=== PATIENT | female | born 1985 | race Caucasian/White ===

== ENCOUNTER 2021-12-24 12:32 | Observation (INO) ==
[2021-12-24] MEDS ORDERED: Naloxone 0.4 MG/ML INJ IVP PRN (17:32)
[2021-12-24] MEDS ORDERED: *HR* OxyCODONE Immed Rel 5 MG TABLET PO PRN (17:32)
[2021-12-24] MEDS ORDERED: Isovue-370 500 ML BOTTLE IVP ONE (17:44)
[2021-12-24] MEDS: Ondansetron ODT 4 MG TAB.RAPDIS SL PRN (17:45)
[2021-12-24] MEDS ORDERED: MethylPREDNISolone 40 MG/ML VIAL IVP ONE (17:49)
[2021-12-24 18:54] LABS: Basophils % 0.7 %; Eosinophils # 0.2 K/mcL (0.0-0.6); Eosinophils % 3.6 %; Hematocrit 33.5 % (35.3-44.9); Hemoglobin 10.6 g/dL (11.5-15.4); Immature Granulocytes % 0.2 % (0-4); Lymphocytes # 3.1 K/mcL (0.6-4.6); Lymphocytes % 51.3 %; Mean Corpuscular HGB Conc 31.6 g/dL (31.6-35.5); Mean Corpuscular Volume 85.2 fL (83.0-100.0); Mean Platelet Volume 11.2 fL (9.4-12.4); Monocytes # 0.4 K/mcL (0.0-1.3); Neutrophils # 2.3 K/mcL (1.6-8.9); Platelet Count 233 K/mcL (140-400); Red Blood Count 3.93 M/mcL (3.82-4.97); Red Cell Distribution Width 16.7 % (11.5-14.5); Segmented Neutrophils % 38.2 %
[2021-12-24 19:11] LABS: Alanine Aminotransferase 14 Units/L (7-52); Albumin 4.2 g/dL (3.5-5.7); Albumin/Globulin Ratio 1.5 (1.1-2.2); Alkaline Phosphatase 68 Units/L (34-104); Aspartate Amino Transferase 18 Units/L (13-39); BUN/Creatinine Ratio 15 (6-26); Bilirubin,Total 0.2 mg/dL (0.3-1.0); Blood Urea Nitrogen 11 mg/dL (6-20); Calcium 9.4 mg/dL (8.6-10.3); Carbon Dioxide 26 mEq/L (23-29); Chloride 108 mEq/L (98-107); Globulin 2.8 g/dL (2.4-3.5); Glucose 77 mg/dL (70-105); Osmolality,Calculated 284 (280-300); Potassium 4.3 mEq/L (3.5-5.1); Sodium 138 mEq/L (136-145); eGFR For African Americans > 60 (> 60); eGFR For Non-African Americans > 60 (> 60)
[2021-12-24 19:19] LABS: Troponin I < 0.03 ng/mL (< 0.04)
[2021-12-24] MEDS ORDERED: Famotidine 20 MG/2 ML VIAL IVP ONE (19:31)
[2021-12-24] MEDS ORDERED: *HR* Heparin 5,000 UNIT/ML VIAL IVP PRN ×2 (23:00)
[2021-12-24] MEDS ORDERED: *HR* Heparin 5,000 UNIT/ML VIAL IVP ONE (23:00)
[2021-12-24] MEDS: Heparin 25,000UNIT/250ML 1/2NS 25,000 UNIT/250 ML IV.SOLN IVC SCH (23:59)
[2021-12-25 00:48] LABS: Alanine Aminotransferase 14 Units/L (7-52); Albumin 3.8 g/dL (3.5-5.7); Albumin/Globulin Ratio 1.5 (1.1-2.2); Alkaline Phosphatase 63 Units/L (34-104); Aspartate Amino Transferase 15 Units/L (13-39); BUN/Creatinine Ratio 14 (6-26); Bilirubin,Total 0.2 mg/dL (0.3-1.0); Blood Urea Nitrogen 13 mg/dL (6-20); Calcium 9.1 mg/dL (8.6-10.3); Carbon Dioxide 24 mEq/L (23-29); Chloride 108 mEq/L (98-107); Chol/HDL Ratio 4.9 (0-4.9); Cholesterol 256 mg/dL (< 200); Globulin 2.6 g/dL (2.4-3.5); Glucose 161 mg/dL (70-105); HDL Cholesterol 52 mg/dL (40-59); LDL Cholesterol,Calculated 194 mg/dL (< 100); Magnesium 1.8 mg/dL (1.6-2.6); Osmolality,Calculated 288 (280-300); Phosphorous 2.8 mg/dL (2.7-4.5); Potassium 4.2 mEq/L (3.5-5.1); Sodium 137 mEq/L (136-145); Total Protein 6.4 g/dL (6.4-8.9); Triglycerides 49 mg/dL (< 150); eGFR For African Americans > 60 (> 60); eGFR For Non-African Americans > 60 (> 60)
[2021-12-25 04:40] LABS: INR 1.1; Prothrombin Time 12.8 Seconds (9.4-12.1)
[2021-12-25 05:04] LABS: Activated Partial Thrombo Time > 360.0 Seconds (26.0-36.0)
[2021-12-25 09:33] LABS: Eosinophils % 0.1 %; Immature Granulocytes % 0.3 % (0-4)
[2021-12-25 09:34] LABS: Basophils % 0.4 %; Hematocrit 35.5 % (35.3-44.9); Hemoglobin 10.3 g/dL (11.5-15.4); Lymphocytes # 2.2 K/mcL (0.6-4.6); Lymphocytes % 32.3 %; Mean Corpuscular Hemoglobin 26.4 pg (28.0-33.3); Mean Platelet Volume 12.1 fL (9.4-12.4); Monocytes # 0.4 K/mcL (0.0-1.3); Monocytes % 5.2 %; Neutrophils # 4.3 K/mcL (1.6-8.9); Platelet Count 189 K/mcL (140-400); Red Cell Distribution Width 17.2 % (11.5-14.5); Segmented Neutrophils % 61.7 %; White Blood Count 6.9 K/mcL (4.3-11.1)
[2021-12-25 10:18] LABS: Alanine Aminotransferase 11 Units/L (7-52); Albumin 3.9 g/dL (3.5-5.7); Albumin/Globulin Ratio 1.5 (1.1-2.2); Alkaline Phosphatase 61 Units/L (34-104); Aspartate Amino Transferase 15 Units/L (13-39); BUN/Creatinine Ratio 19 (6-26); Bilirubin,Total 0.2 mg/dL (0.3-1.0); Blood Urea Nitrogen 14 mg/dL (6-20); Calcium 9.3 mg/dL (8.6-10.3); Carbon Dioxide 19 mEq/L (23-29); Chloride 109 mEq/L (98-107); Globulin 2.6 g/dL (2.4-3.5); Glucose 95 mg/dL (70-105); Osmolality,Calculated 284 (280-300); Potassium 4.1 mEq/L (3.5-5.1); Sodium 137 mEq/L (136-145); Total Protein 6.5 g/dL (6.4-8.9); eGFR For African Americans > 60 (> 60); eGFR For Non-African Americans > 60 (> 60)
[2021-12-25] MEDS: Gabapentin 300 MG CAPSULE PO SCH (13:30)
[2021-12-25] MEDS: lamoTRIgine 100 MG TABLET PO SCH (13:30)
[2021-12-25] MEDS: Acetaminophen 325 MG TABLET PO PRN ×2 (13:30→19:54)
[2021-12-25] MEDS ORDERED: Perflutren Lipid Microsphere 1.3 ML in 0.9 % Sodium Chloride 8.7 ML IVP PRN (16:05)
[2021-12-25] MEDS: Heparin 25,000UNIT/250ML 1/2NS 25,000 UNIT/250 ML IV.SOLN IVC SCH ×2 (16:10→20:31)
[2021-12-25] MEDS: cefTRIAXone 1,000 MG in 0.9 % Sodium Chloride 10 ML IVP SCH (16:51)
[2021-12-25] MEDS: *HR* Buprenorphine HCl 2 MG SUBLINGUAL TABLET SL SCH (19:55)
[2021-12-25] MEDS: *HR* Buprenorphine HCl 8 MG TAB.SUBL SL SCH (19:55)
[2021-12-26] MEDS: *HR* Buprenorphine HCl 8 MG TAB.SUBL SL SCH (08:51)
[2021-12-26] MEDS: *HR* Buprenorphine HCl 2 MG SUBLINGUAL TABLET SL SCH (08:51)
[2021-12-26] MEDS: lamoTRIgine 100 MG TABLET PO SCH (08:52)
[2021-12-26] MEDS: Gabapentin 300 MG CAPSULE PO SCH (08:52)
[2021-12-26] MEDS ORDERED: *HR* LORazepam 2 MG/ML VIAL IVP ONE (12:58)
[2021-12-26 17:35] LABS: Hematocrit 31.5 % (35.3-44.9)
[2021-12-26] MEDS: cefTRIAXone 1,000 MG in 0.9 % Sodium Chloride 10 ML IVP SCH (17:48)
[2021-12-26] MEDS: Magnesium Oxide 400 MG TABLET PO SCH (17:48)
[2021-12-26] MEDS: Ondansetron ODT 4 MG TAB.RAPDIS SL PRN (18:02)
[2021-12-27 02:17] LABS: Basophils % 0.6 %; Eosinophils # 0.2 K/mcL (0.0-0.6); Eosinophils % 3.7 %; Hematocrit 32.5 % (35.3-44.9); Hemoglobin 10.2 g/dL (11.5-15.4); Immature Granulocytes % 0.3 % (0-4); Lymphocytes # 2.3 K/mcL (0.6-4.6); Lymphocytes % 37.4 %; Mean Corpuscular HGB Conc 31.4 g/dL (31.6-35.5); Mean Corpuscular Hemoglobin 26.5 pg (28.0-33.3); Mean Platelet Volume 11.1 fL (9.4-12.4); Monocytes # 0.4 K/mcL (0.0-1.3); Monocytes % 5.9 %; Neutrophils # 3.2 K/mcL (1.6-8.9); Platelet Count 210 K/mcL (140-400); Red Blood Count 3.85 M/mcL (3.82-4.97); Red Cell Distribution Width 16.8 % (11.5-14.5); Segmented Neutrophils % 52.1 %; White Blood Count 6.2 K/mcL (4.3-11.1)
[2021-12-27 02:20] LABS: Mean Corpuscular Volume 84.4 fL (83.0-100.0)
[2021-12-27 02:25] LABS: Prothrombin Time 11.4 Seconds (9.4-12.1)
[2021-12-27 02:39] LABS: BUN/Creatinine Ratio 28 (6-26); Blood Urea Nitrogen 21 mg/dL (6-20); Calcium 9.2 mg/dL (8.6-10.3); Carbon Dioxide 26 mEq/L (23-29); Chloride 106 mEq/L (98-107); Glucose 92 mg/dL (70-105); Osmolality,Calculated 289 (280-300); Potassium 4.3 mEq/L (3.5-5.1); Sodium 138 mEq/L (136-145); eGFR For African Americans > 60 (> 60); eGFR For Non-African Americans > 60 (> 60)
[2021-12-27] MEDS ORDERED: Lidocaine -MPF 2% 2 ML VIAL ONE (08:51)
[2021-12-27] MEDS ORDERED: Ondansetron 4 MG/2 ML VIAL ONE (08:51)
[2021-12-27] MEDS ORDERED: *HR* Midazolam HCl 2 MG/2 ML VIAL ONE ×2 (08:51→10:13)
[2021-12-27] MEDS ORDERED: Lidocaine -MPF 4% 5 ML AMPUL ONE (08:51)
[2021-12-27] MEDS ORDERED: *HR* Propofol 200 MG/20 ML VIAL IVP ONE (08:51)
[2021-12-27] MEDS: Acetaminophen 325 MG TABLET PO PRN (09:03)
[2021-12-27] MEDS: lamoTRIgine 100 MG TABLET PO SCH (09:04)
[2021-12-27] MEDS: Magnesium Oxide 400 MG TABLET PO SCH (09:04)
[2021-12-27] MEDS: Gabapentin 300 MG CAPSULE PO SCH (09:04)
[2021-12-27] MEDS ORDERED: Promethazine 6.25 MG in Water for inj. (sterile) 20 ML IVPB ONE (10:50)
[2021-12-27] MEDS: Hydrocortisone Lotion 59 ML BOTTLE TP PRN ×2 (11:36→20:28)
[2021-12-27] MEDS ORDERED: *HR* Buprenorphine HCl 2 MG SUBLINGUAL TABLET SL ONE (14:43)
[2021-12-27] MEDS ORDERED: *HR* Buprenorphine HCl 8 MG TAB.SUBL SL ONE (14:43)
[2021-12-27] MEDS: *HR* Buprenorphine HCl 8 MG TAB.SUBL SL SCH ×2 (14:44→23:38)
[2021-12-27] MEDS: *HR* Buprenorphine HCl 2 MG SUBLINGUAL TABLET SL SCH ×2 (14:44→23:38)
[2021-12-27 18:58] LABS: Appearance of Body Fluid Clear (Clear); Volume of Body Fluid 12 mL
[2021-12-28 01:53] LABS: Basophils % 0.3 %; Eosinophils % 0.1 %; Hemoglobin 10.2 g/dL (11.5-15.4); Immature Granulocytes % 0.4 % (0-4); Lymphocytes # 1.8 K/mcL (0.6-4.6); Lymphocytes % 16.9 %; Mean Corpuscular HGB Conc 31.9 g/dL (31.6-35.5); Mean Corpuscular Hemoglobin 26.6 pg (28.0-33.3); Mean Corpuscular Volume 83.6 fL (83.0-100.0); Mean Platelet Volume 11.8 fL (9.4-12.4); Monocytes # 0.6 K/mcL (0.0-1.3); Monocytes % 5.4 %; Platelet Count 248 K/mcL (140-400); Red Blood Count 3.83 M/mcL (3.82-4.97); Red Cell Distribution Width 16.4 % (11.5-14.5); Segmented Neutrophils % 76.9 %
[2021-12-28 01:56] LABS: White Blood Count 10.4 K/mcL (4.3-11.1)
[2021-12-28] MEDS: Gabapentin 300 MG CAPSULE PO SCH (09:03)
[2021-12-28] MEDS: *HR* Buprenorphine HCl 8 MG TAB.SUBL SL SCH (09:03)
[2021-12-28] MEDS: *HR* Buprenorphine HCl 2 MG SUBLINGUAL TABLET SL SCH (09:03)
[2021-12-28] MEDS: Magnesium Oxide 400 MG TABLET PO SCH (09:03)
[2021-12-28] MEDS: lamoTRIgine 100 MG TABLET PO SCH (09:03)
[2021-12-28] MEDS: Hydrocortisone Lotion 59 ML BOTTLE TP PRN (11:37)
[2021-12-28 12:25] VITALS: BP 112/50; PULSE 62; TEMP 98.5; O2SAT 96
== END 2021-12-28 12:54 | disposition home or self-care (01) ==
LOC: 2ANU → SUATTDRO 15:54
PROVIDERS: ADMIT Internal Medicine; ATTEND Internal Medicine